=== PATIENT | male | born 1950 | race Caucasian/White ===

== ENCOUNTER → 2016-07-21 | Outpatient (CLI) | payer OTHER ==
[~2016-07-21] MED LIST: BISO5TAB15 PO; CHOL20007 PO; GLUC1CAP35 PO; LISI-729 PO; OMEG12006 PO; PRAV40TA2 PO
--- NOTE | 2016-07-21 12:14 | DIAGNOSTIC IMAGING REPORT ---
LEFT HAND MIN 3 VIEWS ROUTINE, LEFT WRIST MIN 3 VIEWS ROUTINE CLINICAL HISTORY: LEFT HAND PAIN. Left wrist pain. COMPARISON STUDY: None. FINDINGS: No fracture or dislocation within the left hand or left wrist. Soft tissues are unremarkable. No bony erosions identified. Bone mineralization is intact. There is mild cartilage space narrowing and a few small marginal osteophytes seen within the DIP and PIP joints of the hand. There is moderate cartilage space narrowing at the interphalangeal joint of the thumb. There is severe osteoarthritis at the first carpometacarpal joint demonstrated by joint space narrowing, subchondral sclerosis, and large marginal osteophytes. There is mild cartilage space narrowing at the radiocarpal and STT joint. IMPRESSION: 1. Degenerative changes within the left hand and wrist as described above. This is most pronounced at the first carpometacarpal joint. 2. No fracture or dislocation. 3. No erosions identified. Electronically signed by: Leo Carter M.D. 07/21/2016 12:13 PM Dictated Date/Time: 07/21/2016 12:09 PM
== END | disposition home or self-care (01) ==
LOC: C.RAD1850 11:22
PROVIDERS: ATTEND Family Medicine
DX: M12.9 Arthropathy, unspecified (principal)

== ENCOUNTER → 2017-05-10 | Outpatient (CLI) | payer OTHER | END | disposition home or self-care (01) | LOC: C.RDSM 08:39 | PROVIDERS: ATTEND Physical Medicine & Rehabilitation Sports Medicine | DX: Z96.659 Presence of unspecified artificial knee joint (principal); M25.561 Pain in right knee ==